=== PATIENT | male | born 1975 | race Caucasian/White ===

== ENCOUNTER 2023-09-22 23:30 | Emergency (ER) | payer OTHER, SELFPAY ==
--- NOTE | ~2023-09-22 | XR_ITS ---
Left foot Technique: AP, oblique, and lateral views were obtained. Clinical History: Cellulitis Findings: No acute fracture or dislocation is seen. Osseous alignment is anatomic. Joint spaces are p reserved without erosive or degenerative change. Soft tissues are unremarkable. Impression: Unremarkable left foot radiographs. Reviewed, dictated and finalized at [facility] [place]. Impression: Unremarkable left foot radiographs.
--- NOTE | ~2023-09-22 | XR_ITS ---
Portable chest x-ray Comparison: None Clinical History: Cough Findings: Lungs are clear, without focal consolidation or pleural effusion. Cardiomediastinal silho uette is unremarkable. Bones and soft tissues are unremarkable. Impression: Normal chest. Reviewed, dictated and finalized at [facility]. Impression: Normal chest.
--- NOTE | 2023-09-23 00:03 | ECG_ITS ---
Test Date: 2023-09-23 00:24:24 Measurements Intervals [place] Rate: 58 P: 73 [place]: 169 QRS: 37 QRSD: 113 T: 51 QT: 404 QTc: 399 Interpretive Statements SINUS BRADYCARDIA INCOMPLETE RIGHT BUNDLE BRANCH BLOCK No previous ECG available for comparison Electronically Signed On 09-23-2023 11:37:07 CDT by Vishal Renteria M.D.
--- NOTE | 2023-09-23 00:08 | ED.ANIMALBIT ---
HPI - Animal Bite General Chief Complaint: Animal Bite Stated Complaint: spider bite between toes on left foot Time Seen by Provider: 09/22/23 23:43 History of Present Illness HPI narrative: 48-year-old male presents to the emergency department for multiple medical complaints. He is reporting redness and pain to his left foot for or 4 days. States he thinks he may have gotten bit by a spider but he did not see a spider bite him. Last Tdap unknown. He is also reporting central chest pain that started today while he was sitting in his car since 8am and has been consistent since. Denies radiating factors. Denies aggravating or alleviating factors including exertional chest pain. He is reporting a productive cough with white sputum over the past few days which is also new. He endorses that he smokes approximately 10 cigarettes a day for 6 years. Denies formal diagnosis of COPD. No history of VTE, no recent surgeries or hospitalizations, denies hemoptysis. states his sister of cardiac disease a few years ago, other is denying known familial CAD. No hit personal history of CAD. Related Data Allergies Allergy/AdvReac Type Severity Reaction Status Date / Time strawberry Allergy Severe Unknown Verified 09/23/23 00:31 codeine Allergy Mild Hives / Verified 09/23/23 00:31 Red Face Penicillins Allergy Unknown Unknown Verified 09/23/23 00:31 Sulfa (Sulfonamide Allergy Unknown Verified 09/23/23 00:31 Antibiotics) watermelon Allergy Severe Unknown Uncoded 09/22/23 23:38 Review of Systems Review of Systems: CONSTITUTIONAL: Denies fever, chills, or sweats. EYES: Denies visual changes, redness, or discharge. ENT: Denies rhinorrhea, congestion, sore throat, or otalgia. CARDIOVASCULAR: see HPI RESPIRATORY: see HPI GASTROINTESTINAL: Denies abdominal pain, nausea, vomiting, or diarrhea. GENITOURINARY: Denies dysuria or hematuria. SKIN: See HPI MUSCULOSKELETAL: Denies back pain, joint pain, or myalgia. NEUROLOGIC: Denies headache, numbness, or weakness. PSYCHIATRIC: Denies anxiety or depression. Exam Narrative: GENERAL: Well-appearing, well-nourished, and in no acute distress. Unkept, poor hygeine HEAD: Normocephalic, atraumatic. EYES: PERRLA and EOMI. ENT: Nares clear, no rhinorrhea or epistaxis. Mucous membranes moist. Poor dentition with dental caries throughout NECK: Supple. CHEST: inspiratory and expiratory wheezing and rhonchi throughout all lung lerner. HEART: Regular rate and rhythm. No murmur heard. Normal peripheral pulses. ABDOMEN: Soft, nontender, nondistended, normal active bowel sounds. EXTREMITIES: Normal range of motion. No edema. SKIN: Erythema, warmth and tenderness to the base of the 2nd and 3rd toes and proximal metatarsals of the left foot. Patient able to wiggle toes. Cap refill less than 2. Sensation intact. No crepitus, vesicles or desquamation. There is a small area of xerotic skin between the 2nd and 3rd toes, however no open wounds or ulcerations. NEURO: No focal deficits. Alert and oriented x3 Course Vital Signs Vital signs: Vital Signs Pulse Rate 69 /04/05 00:17 Respiratory Rate 18 09/23/23 00:17 Pulse Rate 63 09/23/23 00:29 Respiratory Rate 18 09/23/23 00:29 MDM - Animal Bite MDM Narrative Medical decision making narrative: 48-year-old male presents to emergency department for redness and pain to the dorsum of his left foot for 4 days, also complaining of chest pain and coughed today. See HPI for further history. Triage vitals... CBC without leukocytosis or anemia. Chemistries are unremarkable. UA without infection. UDS positive for cannabinoids. COVID, flu RSV are negative. CRP and ESR within normal limits. Lipase normal. EKG shows sinus bradycardia with a rate of 50 ppm, no ischemic changes. Troponin undetectable. Chest x-ray without acute cardiopulmonary process. X-ray of the foot is unremarkable. Workup discussed with the
[2023-09-23 00:17] VITALS: PULSE 69; RESP 18
[2023-09-23] MEDS: IPRATROPIUM 0.5 MG/ALBUTEROL SULFATE 2.5 MG AMPUL.NEB 3 ML INHALATION (00:17)
[2023-09-23 00:19] LABS: Basophils Absolute Auto 0.1 K/mm3 (0.0-0.1); Basophils Percent Auto 0.8 % (0.2-1.2); Eosinophils Absolute Auto 0.3 K/mm3 (0-0.3); Eosinophils Percent Auto 4.3 % (0-4.4); Hematocrit 42.1 % (42.0-52.0); Hemoglobin 15.3 g/dL (14.0-18.0); Immature Granulocyte Absolute 0.02 K/mm3 (0.00-0.031); Immature Granulocyte Percent A 0.3 % (0-0.5); Lymphocytes Absolute Auto 2.18 K/mm3 (0.9-3.2); Lymphocytes Percent Auto 34.8 % (18.3-44.2); Mean Corpuscular HGB Conc 36.3 g/dl (32-36); Mean Corpuscular Hemoglobin 32.8 pg (26-34); Mean Corpuscular Volume 90.3 fl (80-100); Mean Platelet Volume 10.2 fl (7.4-10.4); Monocytes Absolute Auto 0.5 K/mm3 (0.1-0.6); Monocytes Percent Auto 7.8 % (2.6-8.5); Neutrophils Absolute Auto 3.3 K/mm3 (1.3-6.7); Platelet Count Result 162 k/mm3 (150-375); Red Blood Count 4.66 M/mm3 (4.6-6.20); Red Cell Distribution Width 12.2 % (11.5-14.5); White Blood Count 6.3 K/mm3 (4.5-10.0)
[2023-09-23] MEDS: TETANUS,DIPHTHERIA,AC PERTUSSIS ADULT (0.5 ML) BOOSTRIX IM (00:20)
[2023-09-23 00:29] VITALS: PULSE 63; RESP 18
[2023-09-23 00:35] LABS: Alanine Aminotransferase 24 U/L (6-50); Alkaline Phosphatase 55 U/L (38-126); Anion Gap 4 mmol/L (4-12); Aspartate Amino Transferase 34 U/L (17-59); Bilirubin,Total 0.6 mg/dL (0.2-1.3); Blood Urea Nitrogen 9 mg/dL (9-20); CRP < 0.5 mg/dL (<1.0); Calcium 8.7 mg/dL (8.4-10.2); Carbon Dioxide 26 mmol/L (22-30); Chloride 107 mmol/L (98-107); Estimated CRCL calculation 132 ml/min; Estimated Glomerular Filt Rate > 60; Glucose 88 mg/dL (65-110); Lipase 56 U/L (23-300); Potassium 4.2 mmol/L (3.4-5.0); Sodium 137 mmol/L (137-145)
[2023-09-23 00:44] LABS: NT Pro B Type Natriuretic Pept 63 pg/mL (19.9-100); Troponin I < 0.012 ng/mL (0.000-0.034)
[2023-09-23 00:57] LABS: Prothrombin Time 13.2 Seconds (11.1-14.7)
[2023-09-23 01:13] LABS: Influenza A QL RT-PCR Negative (Negative); Influenza B QL RT-PCR Negative (Negative); RSV RNA, RT-PCR Negative (Negative); SARS-CoV-2 RNA PCR Negative (Negative)
[2023-09-23 01:16] LABS: Appearance Urine Clear (Clear); Bilirubin Urine Negative (Negative); Blood Urine Negative (Negative); Color Urine Dark Yellow (Yellow); Glucose Urine UA Negative (Negative); Ketones Urine Trace mg/dL (Negative); Leukocyte Esterase Ur Negative LEU/UL (Negative); Nitrate Urine Negative (Negative); Protein Urine Negative (Negative); Specific Grav Ur 1.023 (1.001-1.035)
[2023-09-23 01:23] LABS: Add Urine Microscopic? NO
[2023-09-23 01:27] LABS: Erythrocyte Sedimentation Rate 8 mm/hr (0-20)
[2023-09-23 01:34] LABS: Amphetamine Screen Urine Negative (Negative); Barbiturate Screen Urine Negative (Negative); Benzodiazepines Screen Urine Negative (Negative); Cannabinoid Screen Urine Positive (Negative); Cocaine Screen Urine Negative (Negative); Methadone Screen Urine Negative (Negative); Opiate Screen Urine Negative (Negative); Phencyclidine Screen Urine Negative (Negative)
[2023-09-23 01:38] VITALS: BP 107/78; PULSE 63; RESP 16; O2SAT 97
[2023-09-23 01:40] VITALS: TEMP 36.7
[2023-09-23] MEDS: AZITHROMYCIN 250 MG TABLET 1000 MG PO (02:01)
[2023-09-23] MEDS: CEPHALEXIN 500 MG CAPSULE PO (02:01)
[2023-09-23] MEDS: predniSONE 20 MG TABLET 40 MG PO (02:01)
[2023-09-23 02:05] VITALS: BP 110/85; PULSE 65; RESP 18; O2SAT 98
== END 2023-09-23 02:07 | disposition home or self-care (01) ==
PROVIDERS: Emergency Provider Physician Assistant
DX: R07.89 Other chest pain (principal); J40 Bronchitis, not specified as acute or chronic; L03.116 Cellulitis of left lower limb; F17.210 Nicotine dependence, cigarettes, uncomplicated; Z20.822 Contact with and (suspected) exposure to COVID-19; Z23 Encounter for immunization
CPT/HCPCS: 36415; 71045; 73630; 80053; 80307; 81003; 83690; 83880; 84484; 85025; 85610; 85652; 85730; 86140; 87637; 90471; 90715; 93005; 94640; 99284; A9270; J7512